=== PATIENT | female | born 1995 | race African-American/Black ===

== ENCOUNTER 2017-01-02 17:18 | Emergency (ER) | payer SELFPAY ==
[~2017-01-02] VITALS: Ht 162.6 cm; Wt 62.1 kg
[2017-01-02 17:23] VITALS: Ht 162.6 cm; Wt 62.1 kg
--- NOTE | 2017-01-02 17:47 | EMERGENCY ROOM VISIT NOTE ---
History First contact with patient: 17:27 Chief Complaint: FLU LIKE SX Stated Complaint: COUGHING, DIARRHEA, PAIN IN THE RIBS-RT SIDE History of Present Illness The patient is a 21 year old female who presents to the Emergency Room with complaints of upper respiratory tract infection symptoms and chest pain worse on palpation. She started having URI symptoms for the past 3-4 days with nasal congestion and a non productive cough. Her chest pain is severity 3-5/10 at worse. Right side underneath her breast. No radiation. No associated diaphoresis , nausea or shortness of breath. Exacerbated by palpation and leaning over. Mildly exacerbated by exertion and inspiration. She grew up in [place] but no travel outside of the [facility] since moving here in 2011. Immunizations up to date. No known TB exposure. No night sweats. Review of Systems Constitutional: No fever, No chills Eyes: No worsening of vision ENT: + sore throat, No hearing loss Respiratory: + cough, No sputum, No wheezing, No shortness of breath, No dyspnea on exertion, No dyspnea at rest, No hemoptysis Cardiovascular: + chest pain, No orthopnea, No PND, No edema, No claudication, No palpitations Abdomen: No pain, No nausea, No vomiting, No diarrhea, No constipation, No GI bleeding Musculoskeletal: No joint pain, No muscle pain Genitourinary - Female: No dysuria, No urinary frequency, No urinary urgency , No urinary incontinence, No urinary retention Endocrine: No fatigue, No excessive thirst, No excessive urination Hematologic / Lymphatic: No abnormal bleeding/bruising Integumentary: No rash, No itch Past Medical/Surgical History No Known Past Medical History Social History Smoking Status: Never Smoker Smokeless Tobacco Use: No Alcohol Use: none Drug Use: none Housing Status: lives alone 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, Senior) Current/Historical Medications Scheduled Folic Acid (Folvite), 1 MG PO DAILY Physical Exam Vital Signs Date Time Temp Pulse Resp B/P (MAP) Pulse Ox O2 Delivery O2 Flow Rate FiO2 01/02/17 18:57 36.9 76 18 130/79 100 01/02/17 17:23 36.9 72 18 125/78 100 Physical Exam General Appearance: WD/WN, + mild distress Head: normocephalic, atraumatic Eyes: normal inspection ENT: normal ENT inspection (externally), pharynx normal Respiratory/Chest: chest non-tender, lungs clear, normal breath sounds (no wheezing or crackles), no respiratory distress, no accessory muscle use Cardiovascular: regular rate, rhythm, no edema, normal peripheral pulses, + systolic murmur (loudest in apex) Abdomen / GI: normal bowel sounds, non tender, soft Extremities: no calf tenderness, normal capillary refill, no pedal edema Neurologic/Psych: glass vial bending conveyor feeder II-XII nml as tested (no facial droop), no motor/ sensory deficits (grossly), alert, oriented x 3 Medical Decision & Procedures ER Provider Diagnostic Interpretation: CHEST ONE VIEW PORTABLE CLINICAL HISTORY: Right-sided chest pain and cough. COMPARISON STUDY: No previous studies for comparison. FINDINGS: Lung volumes are diminished. No consolidation is identified to suggest pneumonia. There is no pneumothorax or pleural effusion. Cardiomediastinal silhouette is unremarkable. Cardiac size is accentuated on this hypoventilatory portable exam. IMPRESSION: No acute cardiopulmonary findings. Electronically signed by: Wade Hardy M.D. 01/02/2017 5:55 PM Dictated Date/Time: 01/02/2017 5:54 PM Laboratory Results 01/02/17 17:57 Red Blood Count 4.26, Mean Corpuscular Volume 82.9, Mean Corpuscular Hemoglobin 28.9, Mean Corpuscular Hemoglobin Concent 34.8, Mean Platelet Volume 11.2, Neutrophils (%) (Auto) 70.7, Lymphocytes (%) (Auto) 20.6, Monocytes (%) (Auto) 6.5, Eosinophils (%) (Auto) 2.1, Basophils (%) (Auto) 0.0, Neutrophils # (Auto) 5.34, Lymphocytes # (Auto) 1.56, Monocytes # (Auto) 0.49, Eosinophils # (Auto) 0.16, Basophils # (Auto) 0.00 01/02/17 17:57 Test 01/02/17 17:57 White Blood Count 7.56 K/uL (4.8-10.8) Red Blood Count 4.26 M/uL (4.2-5.4) Hemoglobin 12.3 g/dL (12.0-16.0) Hematocrit 35.3 % (37-47) Mean Corpuscular Volume 82.9 fL (80-100) Mean Corpuscular Hemoglobin 28.9 pg (25-34) Mean Corpuscular Hemoglobin Concent 34.8 g/dl (32-36) Platelet Count 207 K/uL (130-400) Mean Platelet Volume 11.2 fL (7.4-10.4) Neutrophils (%) (Auto) 70.7 % Lymphocytes (%) (Auto) 20.6 % Monocytes (%) (Auto) 6.5 % Eosinophils (%) (Auto) 2.1 % Basophils (%) (Auto) 0.0 % Neutrophils # (Auto) 5.34 K/uL (1.4-6.5) Lymphocytes # (Auto) 1.56 K/uL (1.2-3.4) Monocytes # (Auto) 0.49 K/uL (0.11-0.59) Eosinophils # (Auto) 0.16 K/uL (0-0.5) Basophils # (Auto) 0.00 K/uL (0-0.2) RDW Standard Deviation 36.7 fL (36.4-46.3) RDW Coefficient of Variation 12.2 % (11.5-14.5) Immature Granulocyte % (Auto) 0.1 % Immature Granulocyte # (Auto) 0.01 K/uL (0.00-0.02) Anion Gap 3.0 mmol/L (3-11) Est Creatinine Clear Calc Drug Dose 96.5 ml/min Estimated GFR () 123.2 Estimated GFR (Non- 106.3 BUN/Creatinine Ratio 13.7 (10-20) Calcium Level 8.5 mg/dl (8.5-10.1) Medications Administered Medications (Trade) Dose Ordered Sig/Edna Route Start Time Stop Time Status Last Admin Dose Admin Acetaminophen (Tylenol Tab) 650 mg NOW STAT PO 01/02/17 17:48 01/02/17 17:50 DC 01/02/17 18:12 650 MG Ibuprofen (Advil Tab) 400 mg NOW STAT PO 01/02/17 17:48 01/02/17 17:50 DC 01/02/17 18:11 400 MG Sodium Chloride 1,000 ml @ 999 mls/hr Q1H1M STAT IV 01/02/17 17:49 01/02/17 18:49 DC 01/02/17 17:49 999 MLS/HR ECG Indication: chest pain Rate (beats per minute): 65 Rhythm: normal sinus Findings: no acute ischemic change, no ectopy Comparison ECG Date: no prior available ED Course 17:27 Complete history and physical performed by myself 17:55 Patient was discussed with Dr Dhillon who separately performed history and physical 18:41 Reassessed patient. Her pain had improved with acetaminophen and ibuprofen. She was diagnosed with MSK chest pain and acute bronchitis and discharged. Medical Decision Triage Nursing notes reviewed. Additional history obtained from patient. The patient's history was concerning for chest pain. Differential diagnosis: Etiologies such as cardiac ischemia, aortic dissection, pulmonary embolism, pneumonia, pneumothorax, musculoskeletal, infections, pericarditis, myocarditis , esophageal rupture, gastrointestinal, as well as others were entertained. Physical examination: As above. Lungs CTA ER treatment provided: NSS 1L bolus Ibuprofen 400 mg PO Acetaminophen 650mg PO On reassessment the patient felt better. Diagnostic interpretation by me: The electrocardiogram was negative for pathologic change. The labs revealed normal WBC, mild hypokalemia but was otherwise unremarkable Imaging studies: Chest x-ray as above Her H&P, labs and CXR are most consistent with acute bronchitis and pain worse on palpation most consistent with MSK chest wall pain. She does have an incidental systolic murmur on examination. She was recommended to follow up with her PCP for a recheck of this in the office when well and if persistent to consider echocardiogram. She has no other stigmata of infective endocarditis, normal WBC and no fever to suggest further workup for IE is required. Her pain is worse with leaning forward making pericarditis less likely. Her PERC score is negative therefore no further testing for PE was done in this regard. By the evaluation outlined above emergent etiologies such as cardiac ischemia, aortic dissection, pulmonary embolism, pneumonia, pneumothorax, infections, pericarditis, myocarditis, gastrointestinal, as well as others were deemed relatively unlikely. The patient was informed about the findings as listed above. All questions were answered and she was pleased with the treatment. Return instructions were outlined and the patient was discharged in stable condition. Referral: The patient was referred back to her primary care physician for follow-up in 2 to 3 days for a recheck of the current condition. Medication Reconcilliation Current Medication List: was personally reviewed by me Blood Pressure Screening Patient's blood pressure: Normal blood pressure Blood pressure disposition: Did not require urgent referral Impression Primary Impression: Musculoskeletal chest pain Additional Impressions: Acute bronchitis Systolic murmur Departure Information Dispostion Home / Self-Care Condition GOOD Referrals No Doctor, Assigned (PCP) Patient Instructions My [facility] Additional Instructions CHEST PAIN INSTRUCTIONS: Ibuprofen(Motrin, Advil) may be used for fever or pain. Use 600mg every six hours as needed. Take with food. Avoid using more than 2400mg in a 24 hour period. Do not use 2400mg per day for more than three consecutive days without physician direction. Prolonged inappropriate use can lead to stomach upset or ulcers. This is available over the counter and typically comes in 200mg tablets. (AND/OR) Acetaminophen(Tylenol) may be used for fever or pain. Use 1000mg every eight hours as needed. Avoid using more than 3000mg in a 24 hour period. This is available over the counter. Read all the package inserts or medication information paperwork provided. If you have any questions or concerns call your primary provider, pharmacist or the ER for assistance. Rest and drink plenty of fluids as tolerated. Continue current medications. Avoid strenuous activities and anything that worsens your pain. Resume normal activities once your symptoms resolve. Return to the ER immediately for worsening or persistent chest pain, abdominal pain, vomiting, fevers, chest pains, difficulty breathing, worsening of your condition, or as needed. Follow up with your primary physician in 2-3 days for a recheck of your current condition. Resident Tracking Resident Involvement: Resident Care Provided Care Provided: Adult ED Problem Qualifiers Additional Impressions: Acute bronchitis Bronchitis organism: unspecified organism Qualified Codes: J20.9 - Acute bronchitis, unspecified
[2017-01-02] MEDS ORDERED: IBUPROFEN 200 MG TAB PO STA (17:48)
[2017-01-02] MEDS ORDERED: ACETAMINOPHEN 325 MG TAB PO STA (17:48)
[2017-01-02] MEDS ORDERED: SODIUM CHLORIDE 0.9% 1000ML 1,000 ML IV STA (17:49)
--- NOTE | 2017-01-02 17:56 | DIAGNOSTIC IMAGING REPORT ---
CHEST ONE VIEW PORTABLE CLINICAL HISTORY: Right-sided chest pain and cough. COMPARISON STUDY: No previous studies for comparison. FINDINGS: Lung volumes are diminished. No consolidation is identified to suggest pneumonia. There is no pneumothorax or pleural effusion. Cardiomediastinal silhouette is unremarkable. Cardiac size is accentuated on this hypoventilatory portable exam. IMPRESSION: No acute cardiopulmonary findings. Electronically signed by: Wade Hardy M.D. 01/02/2017 5:55 PM Dictated Date/Time: 01/02/2017 5:54 PM
[2017-01-02 18:11] LABS: COMPLETE YES; EOS % 2.1 %; HEMATOCRIT 35.3 % (37-47); IG% 0.1 %; LYMPH % 20.6 %; LYMPH ABS # 1.56 K/uL (1.2-3.4); MEAN CELL VOLUME 82.9 fL (80-100); MEAN CORPUSCULAR HEMOGLOBIN 28.9 pg (25-34); MEAN CORPUSCULAR HGB CONC 34.8 g/dl (32-36); MEAN PLATELET VOLUME 11.2 fL (7.4-10.4); MONO % 6.5 %; NEUT % 70.7 %; PLATELET COUNT 207 K/uL (130-400); RED BLOOD COUNT 4.26 M/uL (4.2-5.4); WHITE BLOOD COUNT 7.56 K/uL (4.8-10.8)
[2017-01-02 18:29] LABS: BUN/CREATININE RATIO 13.7 (10-20); CALCIUM 8.5 mg/dl (8.5-10.1); CREATININE 0.79 mg/dl (0.60-1.20); POTASSIUM 3.3 mmol/L (3.5-5.1)
--- NOTE | 2017-01-02 18:34 | EMERGENCY ROOM VISIT NOTE ---
ED Visit Note First contact with patient: 17:27 I saw the patient with Dr. Montenegro, third year resident. The patient presents with right-sided chest pain and cough. Workup suggests a musculoskeletal cause for her pain. Chest film, EKG and laboratory testing were unrevealing. Her pain is reproducible. She is being discharged with conservative measures. The patient was talked to about her cardiac murmur. She will follow with [facility] as an outpatient. Diagnosis: Right-sided chest pain. Cough.
[2017-01-02] MEDS ORDERED: FOLI1TAB7 PO (18:38)
[2017-01-02 18:57] VITALS: BP 130/79; PULSE 76; TEMP 36.9; O2SAT 100
== END 2017-01-02 18:59 | disposition home or self-care (01) ==
LOC: C.EDB 17:20
DX: J20.9 Acute bronchitis, unspecified (principal); R07.89 Other chest pain; R01.1 Cardiac murmur, unspecified